=== PATIENT | female | born 1960 | race Caucasian/White ===

== ENCOUNTER 2018-08-15 10:30 | Outpatient (RCR) | payer MEDICARE, MEDICAID, SELFPAY ==
--- NOTE | 2018-08-03 12:00 | PT.OIE ---
Current Diagnoses Pain in right ankle and joints of right foot (08/03/18) Stiffness of right ankle, not elsewhere classified (08/03/18) Muscle weakness (generalized) (08/03/18) Other enthesopathy of right foot (08/03/18) Other abnormalities of gait and mobility (08/03/18) Provider Visit Care Team Role Provider Type Babak Lambert DPM Attending Provider Non-Staff Specialty: Podiatry Address: [address] [place] [address], [id number] Email: Physical Therapy Initial Evaluation PT-OP-A Visit Information Start: 08/04/18 14:03 Freq: Status: Active Protocol: Document 08/03/18 12:00 [facility] (Rec: 08/04/18 14:44 [facility] [email or web address]) Out-Patient Physical Therapy Visit Information Visit Information Visit Type Initial Evaluation Visit Start Time 12:00 Visit Stop Time 12:45 Total Visit Minutes 45 Visit Number 1 Number of 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 Current Complaints R heel and LE pain, swelling History of Current Condition Pt is a 58 y/o female presenting to physical therapy with a c/o R heel and LE pain over the past 2-3 months. Pt notes that her entire lower leg on the R was swollen and red, worsening in May of 2018. Pt was initially thought to have gout or cellulitis. MRI performed on 06/13/18 showed: tendinosis and instrsubstanec low to moderate grade partial-thickness teaer of the mid achilles tendon 4- 5 cm fron insertion, as well as edema and swelling over dorsal and medial aspect of the R ankle joint. Pt was initially placed in an PIOTR wrap for RLE with decreased swelling. Upon return to the doctor, pt was placed in a walking boot and was compliant with this from 06/28/2017 until 07/19/17. She notes that since not using the walking boot all the time, she has some increased swelling but it does go away with rest, elevation and icing. Pt is still compliant with the compression stocking. She would like to get back to walking for exercise, as she had gastric surgery 2-3 yrs ago and wants to make sure she can keep the weight she lost off. She is wearing a heel lift in R shoe as well. Prior Treatments and Tests MRI (see above) Treatment Goals Patient/Caregiver Goals get back to walking program, decrease pain Prior Functional Status Baseline Function- Recreation/Hobbies walking outdoors, hills, 3-4 miles per day Current Functional Impairments (Reported) Functional Limitations- Recreation/ no walking program due to pain Hobbies and RLE swelling Personal Factors Other Personal Factors That May Effect cardiac issues (CHF), Therapy/Recovery depression, R NELL 2 yrs ago, gastric surgery 2-3 yrs ago, SOB with exertion (along with some dizziness), h/o falls ( reports she is clumsy), OA PT-OP-C Subjective Start: 08/04/18 14:03 Freq: Status: Active Protocol: Document 08/03/18 12:00 [facility] (Rec: 08/04/18 14:44 [facility] [email or web address]) Patient Questionnaires Lower Extremity Functional Scale LEFS Score 40 OP-PT Pain Assessment Location R achilles Intensity 4 Scale Used Numeric (1 - 10) Pain Aggravating Factors Activity Exercise Standing Walking PT-OP-D Balance Start: 08/04/18 14:03 Freq: Status: Active Protocol: Document 08/03/18 12:00 [facility] (Rec: 08/04/18 14:44 [facility] [email or web address]) Balance Tests Single Limb Standing Single Limb- Right unable Single Limb- Left 5 sec with increased sway PT-OP-F Manual Assessment Start: 08/04/18 14:03 Freq: Status: Active Protocol: Document 08/03/18 12:00 [facility] (Rec: 08/04/18 14:44 [facility] [email or web address]) Manual Assessments Soft Tissue Assessment Soft Tissue Mobility Assessment Moderate tenderness to palpation: R achilles (distal and middle), no tenderness in gastroc/soleus with palpation PT-OP-G Mobility & Gait Start: 08/04/18 14:03 Freq: Status: Active Protocol: Document 08/03/18 12:00 [facility] (Rec: 08/04/18 14:44 [facility] [email or web address]) OP Gait Assessment Comments Gait Comments R hip ER throughout gait with toe-out position, decreased push off on the R, decreased step length on the L PT-OP-H Neuro Start: 08/04/18 14:03 Freq: Status: Active Protocol: Document 08/03/18 12:00 [facility] (Rec: 08/04/18 14:44 [facility] [email or web address]) Sensation Evaluation Gross Sensation Gross Sensation WNL PT-OP-K Range of Motion Start: 08/04/18 14:03 Freq: Status: Active Protocol: Document 08/03/18 12:00 [facility] (Rec: 08/04/18 14:44 [facility] [email or web address]) Ankle and Foot Goniometric Range of Motion Ankle and Foot Measured in Degrees Right Passive Dorsiflexion with Knee Extended 8 Plantarflexion 55 Inversion 25 Eversion 18 Right Active Dorsiflexion with Knee Extended 5 Plantarflexion 50 Inversion 20 Eversion 12 Left Active Dorsiflexion with Knee Extended 12 Plantarflexion 55 Inversion 30 Eversion 20 PT-OP-L Special Tests Start: 08/04/18 14:03 Freq: Status: Active Protocol: Document 08/03/18 12:00 [facility] (Rec: 08/04/18 14:44 [facility] [email or web address]) Special Tests Foot/Ankle Special Tests Castle Test Results negative R Vascular Special Tests Kirit's Sign Test Results negative R PT-OP-M Strength Start: 08/04/18 14:03 Freq: Status: Active Protocol: Document 08/03/18 12:00 [facility] (Rec: 08/04/18 14:44 [facility] [email or web address]) Hip Strength Hip Manual Muscle Testing Right Flexion (L2) 5 Normal External Rotation 5 Normal Internal Rotation 5 Normal Left Flexion (L2) 5 Normal External Rotation 5 Normal Internal Rotation 5 Normal Knee Strength Knee Manual Muscle Testing Right Flexion (S2) 5 Normal Extension (L3) 5 Normal Left Flexion (S2) 5 Normal Extension (L3) 5 Normal Ankle/Foot Strength Ankle and Foot Manual Muscle Testing Right Dorsiflexion (L4) 4+ Good+ Plantarflexion (S1) 2+ Poor+ Inversion 4 Good Eversion (S1) 4 Good Left Dorsiflexion (L4) 5 Normal Plantarflexion (S1) 4 Good Inversion 5 Normal Eversion (S1) 5 Normal PT-OP-Q Treatments Start: 08/04/18 14:03 Freq: Status: Active Protocol: Document 08/03/18 12:00 [facility] (Rec: 08/04/18 14:44 [facility] [email or web address]) Therapeutic Exercises Supine Exercises ABCs Side right Reps/Minutes 1 set Sitting Exercises ankle PF Side right Resistance L3 Reps/Minutes x10 Standing Exercises gastroc stretch Standing Exercise Name vs wall Side right Reps/Minutes 2x30 sec PT-OP-T Assessment and Plan Start: 08/04/18 14:03 Freq: Status: Active Protocol: Document 08/03/18 12:00 [facility] (Rec: 08/04/18 14:44 [facility] [email or web address]) Physical Therapy Assessment Rehab Potential Rehabilitation Potential Good Evaluation Complexity Number of Personal Factors/Comorbidities 3 or More Number of Body Systems Impaired 4 or More Clinical Presentation at Evaluation Evolving Impairments Impairments Activity Tolerance Balance Functional Activities Gait Pain ROM Soft Tissue Mobility Strength Goals Lower Extremity Functional Scale score Impairment LEFS: 40/80 or 50% Short Term Goal (STG) LEFS score to at least 60% to demonstrate improvements with functional activities including walking and standing . STG Duration 6 weeks [facility] Goal (LTG) LEFS score to at least 70% to demonstrate improvements with functional activities including walking and standing . LTG Duration 12 weeks R ankle strength Impairment R ankle weakness Short Term Goal (STG) R ankle strength with manual muscle testing: at least 4+/5 with DF, inversion, and eversion and 3+/5 with PF. STG Duration 6 weeks [facility] Goal (LTG) R ankle strength with manual muscle testin/5 with DF, inversion, and eversion and 4/ 5 with PF. LTG Duration 12 weeks R ankle ROM Impairment R ankle ROM [facility] Goal (LTG) R ankle AROM: DF to 10 degrees , PF to 55 degrees, inversion to 30 degrees, and eversion to 20 degrees to tolerate ambulation on uneven terrain and perform stairs without compensatory movements. LTG Duration 12 weeks walking Impairment unable to walk for weight management due to pain Short Term Goal (STG) pt will walk for 15 min outdoors on firm ground without increased pain, 3 days per week. STG Duration 6 weeks [facility] Goal (LTG) pt will walk for 30 min on firm ground without increased pain, 5 days per week to maintain a home walking program. LTG Duration 12 weeks Assessment Summary Assessment Pt presents with negative Castle test and the ability to PF the R ankle against light resistance without pain, but unable to perform a single leg heel raise on the affected limb. Pt appears to be compliant with wearing her compression stocking, and is no longer using the walking boot. She has a heel lift in her R shoe which appears to be appropriate for her at this time. Pt will require extensive physical therapy to safely progress her gait, standing balance, ankle ROM and strength, as well as continued skilled progression of her HEP to eventually return to a safe walking program and level of activity to assist with weight gain prevention and return to her prior level of function. Recommend pt to continue to rest, elevate and ice her R ankle as needed. Physical Therapy Plan Frequency and Duration Frequency of Treatment 2x/Week Duration of Treatment 12 weeks Plan of Care Start Date 08/03/18 Plan of Care End Date 10/26/18 Therapeutic Interventions Therapeutic Interventions Aquatic Therapy Balance Training Gait Training Home Exercise Program Joint Mobilizations Manual Therapy Neuromuscular Re-education Orthotic/Prosthetic Management Patient/Caregiver Education Self-Care/Home Management Soft Tissue Mobilization Taping Therapeutic Activities Therapeutic Exercises Modalities Cold Pack/Ice Massage Electric Stimulation Hot Packs Iontophoresis Ultrasound Other Therapeutic Interventions iontophoresis with dexamethasone 4 mg/mL Next Visit Focus/Plan Next Note Type Treatment Note Next Visit Plan cross-friction massage to achilles, modalities for pain as needed including ultrasound , iontophoresis with dexamethasone 4 mg/mL if POC returned and signed
--- NOTE | 2018-08-07 11:35 | PT.OTN ---
Current Diagnoses Pain in right ankle and joints of right foot (08/07/18) Other enthesopathy of right foot (08/07/18) Physical Therapy Treatment Note PT-OP-A Visit Information Start: 08/04/18 14:03 Freq: Status: Active Protocol: Document 08/07/18 10:30 AMB (Rec: 08/07/18 10:38 AMB [id number]) Out-Patient Physical Therapy Visit Information Visit Information Visit Type Treatment Note Visit Start Time 10:30 Visit Stop Time 11:15 Visit Number 2 PT-OP-B Current Condition Start: 08/04/18 14:03 Freq: Status: Active Protocol: Document 08/03/18 12:00 [facility] (Rec: 08/04/18 14:44 [facility] [email or web address]) Current Condition History of Current Condition Onset Date 3 mos. Current Complaints R heel and LE pain, swelling History of Current Condition Pt is a 58 y/o female presenting to physical therapy with a c/o R heel and LE pain over the past 2-3 months. Pt notes that her entire lower leg on the R was swollen and red, worsening in May of 2018. Pt was initially thought to have gout or cellulitis. MRI performed on 06/13/18 showed: tendinosis and instrsubstanec low to moderate grade partial-thickness teaer of the mid achilles tendon 4- 5 cm fron insertion, as well as edema and swelling over dorsal and medial aspect of the R ankle joint. Pt was initially placed in an PIOTR wrap for RLE with decreased swelling. Upon return to the doctor, pt was placed in a walking boot and was compliant with this from 06/28/2017 until 07/19/17. She notes that since not using the walking boot all the time, she has some increased swelling but it does go away with rest, elevation and icing. Pt is still compliant with the compression stocking. She would like to get back to walking for exercise, as she had gastric surgery 2-3 yrs ago and wants to make sure she can keep the weight she lost off. She is wearing a heel lift in R shoe as well. Prior Treatments and Tests MRI (see above) Treatment Goals Patient/Caregiver Goals get back to walking program, decrease pain Prior Functional Status Baseline Function- Recreation/Hobbies walking outdoors, hills, 3-4 miles per day Current Functional Impairments (Reported) Functional Limitations- Recreation/ no walking program due to pain Hobbies and RLE swelling Personal Factors Other Personal Factors That May Effect cardiac issues (CHF), Therapy/Recovery depression, R NELL 2 yrs ago, gastric surgery 2-3 yrs ago, SOB with exertion (along with some dizziness), h/o falls ( reports she is clumsy), OA PT-OP-C Subjective Start: 08/04/18 14:03 Freq: Status: Active Protocol: Document 08/07/18 10:30 AMB (Rec: 08/07/18 10:38 AMB [id number]) OP-PT Subjective Patient Comments Patient Comments Pt notes no pain with HEP. Feels ankle is somewhat numb, so she watches the swelling more than the pain. PT-OP-D Balance Start: 08/04/18 14:03 Freq: Status: Active Protocol: Document 08/03/18 12:00 [facility] (Rec: 08/04/18 14:44 [facility] [email or web address]) Balance Tests Single Limb Standing Single Limb- Right unable Single Limb- Left 5 sec with increased sway PT-OP-F Manual Assessment Start: 08/04/18 14:03 Freq: Status: Active Protocol: Document 08/03/18 12:00 [facility] (Rec: 08/04/18 14:44 [facility] [email or web address]) Manual Assessments Soft Tissue Assessment Soft Tissue Mobility Assessment Moderate tenderness to palpation: R achilles (distal and middle), no tenderness in gastroc/soleus with palpation PT-OP-G Mobility & Gait Start: 08/04/18 14:03 Freq: Status: Active Protocol: Document 08/03/18 12:00 [facility] (Rec: 08/04/18 14:44 [facility] [email or web address]) OP Gait Assessment Comments Gait Comments R hip ER throughout gait with toe-out position, decreased push off on the R, decreased step length on the L PT-OP-H Neuro Start: 08/04/18 14:03 Freq: Status: Active Protocol: Document 08/03/18 12:00 [facility] (Rec: 08/04/18 14:44 [facility] [email or web address]) Sensation Evaluation Gross Sensation Gross Sensation WNL PT-OP-K Range of Motion Start: 08/04/18 14:03 Freq: Status: Active Protocol: Document 08/03/18 12:00 [facility] (Rec: 08/04/18 14:44 [facility] [email or web address]) Ankle and Foot Goniometric Range of Motion Ankle and Foot Measured in Degrees Right Passive Dorsiflexion with Knee Extended 8 Plantarflexion 55 Inversion 25 Eversion 18 Right Active Dorsiflexion with Knee Extended 5 Plantarflexion 50 Inversion 20 Eversion 12 Left Active Dorsiflexion with Knee Extended 12 Plantarflexion 55 Inversion 30 Eversion 20 PT-OP-L Special Tests Start: 08/04/18 14:03 Freq: Status: Active Protocol: Document 08/03/18 12:00 [facility] (Rec: 08/04/18 14:44 [facility] [email or web address]) Special Tests Foot/Ankle Special Tests Castle Test Results negative R Vascular Special Tests Kirit's Sign Test Results negative R PT-OP-M Strength Start: 08/04/18 14:03 Freq: Status: Active Protocol: Document 08/03/18 12:00 [facility] (Rec: 08/04/18 14:44 [facility] [email or web address]) Hip Strength Hip Manual Muscle Testing Right Flexion (L2) 5 Normal External Rotation 5 Normal Internal Rotation 5 Normal Left Flexion (L2) 5 Normal External Rotation 5 Normal Internal Rotation 5 Normal Knee Strength Knee Manual Muscle Testing Right Flexion (S2) 5 Normal Extension (L3) 5 Normal Left Flexion (S2) 5 Normal Extension (L3) 5 Normal Ankle/Foot Strength Ankle and Foot Manual Muscle Testing Right Dorsiflexion (L4) 4+ Good+ Plantarflexion (S1) 2+ Poor+ Inversion 4 Good Eversion (S1) 4 Good Left Dorsiflexion (L4) 5 Normal Plantarflexion (S1) 4 Good Inversion 5 Normal Eversion (S1) 5 Normal PT-OP-Q Treatments Start: 08/04/18 14:03 Freq: Status: Active Protocol: Document 08/07/18 11:15 AMB (Rec: 08/07/18 11:35 AMB [id number]) Cardio Equipment Recumbent Elliptical ([employer]) Duration (Minutes) 8 Resistance 4 Therapeutic Exercises Sitting Exercises 1 Sitting Exercise Name 4 way ankle Side right Resistance L3 Reps/Minutes 2x5 Standing Exercises gastroc stretch Standing Exercise Name on TRE Side right Reps/Minutes 2x30 sec Manual Therapy Treatment Soft Tissue Mobilization 1 Body Location R ankle Comments cross friction at achilles, MFR into calf PT-OP-R Modalities Start: 08/04/18 14:03 Freq: Status: Active Protocol: Document 08/07/18 11:15 AMB (Rec: 08/07/18 11:35 [facility] [id number]) Hot Pack/Cold Pack Treatment Ice Massage Location R achilles Treatment Duration (minutes) 4 Ultrasound Therapy Treatment Right Ankle Treatment Duration (minutes) 7 Patient Position Hooklying Frequency Setting (mHz) 1 Duty Cycle 50% Intensity Setting (w/cm2) 1.2 PT-OP-T Assessment and Plan Start: 08/04/18 14:03 Freq: Status: Active Protocol: Document 08/07/18 11:15 [facility] (Rec: 08/07/18 11:35 [facility] [id number]) Physical Therapy Assessment Assessment Summary Assessment Pt is excited to start moving more, but encouraged pt to continue to be careful given the recurrent nature of her injury. Pt notes she slid down her driveway walking to her car so her ankle is a bit more swollen than usual. Physical Therapy Plan Next Visit Focus/Plan Next Note Type Treatment Note Next Visit Plan iontophoresis with dexamethasone 4 mg/mL if POC returned and signed continue cross friction and modalities for swelling/pain control, progress exercise and cross friction m
--- NOTE | 2018-08-15 13:12 | PT.OTN ---
Current Diagnoses Pain in right ankle and joints of right foot (08/15/18) Other enthesopathy of right foot (08/15/18) Physical Therapy Treatment Note PT-OP-A Visit Information Start: 08/04/18 14:03 Freq: Status: Active Protocol: Document 08/15/18 10:40 HH (Rec: 08/15/18 13:12 HH [email or web address]) Out-Patient Physical Therapy Visit Information Visit Information Visit Type Treatment Note Visit Note Pt will follow up with doctor on . 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 Current Complaints R heel and LE pain, swelling History of Current Condition Pt is a 58 y/o female presenting to physical therapy with a c/o R heel and LE pain over the past 2-3 months. Pt notes that her entire lower leg on the R was swollen and red, worsening in May of 2018. Pt was initially thought to have gout or cellulitis. MRI performed on 06/13/18 showed: tendinosis and instrsubstanec low to moderate grade partial-thickness teaer of the mid achilles tendon 4- 5 cm fron insertion, as well as edema and swelling over dorsal and medial aspect of the R ankle joint. Pt was initially placed in an PIOTR wrap for RLE with decreased swelling. Upon return to the doctor, pt was placed in a walking boot and was compliant with this from 06/28/2017 until 07/19/17. She notes that since not using the walking boot all the time, she has some increased swelling but it does go away with rest, elevation and icing. Pt is still compliant with the compression stocking. She would like to get back to walking for exercise, as she had gastric surgery 2-3 yrs ago and wants to make sure she can keep the weight she lost off. She is wearing a heel lift in R shoe as well. Prior Treatments and Tests MRI (see above) Treatment Goals Patient/Caregiver Goals get back to walking program, decrease pain Prior Functional Status Baseline Function- Recreation/Hobbies walking outdoors, hills, 3-4 miles per day Current Functional Impairments (Reported) Functional Limitations- Recreation/ no walking program due to pain Hobbies and RLE swelling Personal Factors Other Personal Factors That May Effect cardiac issues (CHF), Therapy/Recovery depression, R NELL 2 yrs ago, gastric surgery 2-3 yrs ago, SOB with exertion (along with some dizziness), h/o falls ( reports she is clumsy), OA PT-OP-C Subjective Start: 08/04/18 14:03 Freq: Status: Active Protocol: Document 08/15/18 10:40 HH (Rec: 08/15/18 13:12 HH [email or web address]) OP-PT Subjective Patient Comments Patient Comments I feel a lot better lately and i've been walking more too . I walked 1.5 mile 2 days ago so my foot is quite sore today. Patient Reported Progress Improving PT-OP-D Balance Start: 08/04/18 14:03 Freq: Status: Active Protocol: Document 08/03/18 12:00 RCC (Rec: 08/04/18 14:44 RCC [email or web address]) Balance Tests Single Limb Standing Single Limb- Right unable Single Limb- Left 5 sec with increased sway PT-OP-F Manual Assessment Start: 08/04/18 14:03 Freq: Status: Active Protocol: Document 08/03/18 12:00 RCC (Rec: 08/04/18 14:44 RCC [email or web address]) Manual Assessments Soft Tissue Assessment Soft Tissue Mobility Assessment Moderate tenderness to palpation: R achilles (distal and middle), no tenderness in gastroc/soleus with palpation PT-OP-G Mobility & Gait Start: 08/04/18 14:03 Freq: Status: Active Protocol: Document 08/03/18 12:00 RCC (Rec: 08/04/18 14:44 RCC [email or web address]) OP Gait Assessment Comments Gait Comments R hip ER throughout gait with toe-out position, decreased push off on the R, decreased step length on the L PT-OP-H Neuro Start: 08/04/18 14:03 Freq: Status: Active Protocol: Document 08/03/18 12:00 RCC (Rec: 08/04/18 14:44 RCC [email or web address]) Sensation Evaluation Gross Sensation Gross Sensation WNL PT-OP-K Range of Motion Start: 08/04/18 14:03 Freq: Status: Active Protocol: Document 08/03/18 12:00 RCC (Rec: 08/04/18 14:44 RCC [email or web address]) Ankle and Foot Goniometric Range of Motion Ankle and Foot Measured in Degrees Right Passive Dorsiflexion with Knee Extended 8 Plantarflexion 55 Inversion 25 Eversion 18 Right Active Dorsiflexion with Knee Extended 5 Plantarflexion 50 Inversion 20 Eversion 12 Left Active Dorsiflexion with Knee Extended 12 Plantarflexion 55 Inversion 30 Eversion 20 PT-OP-L Special Tests Start: 08/04/18 14:03 Freq: Status: Active Protocol: Document 08/03/18 12:00 RCC (Rec: 08/04/18 14:44 RCC [email or web address]) Special Tests Foot/Ankle Special Tests Castle Test Results negative R Vascular Special Tests Kirit's Sign Test Results negative R PT-OP-M Strength Start: 08/04/18 14:03 Freq: Status: Active Protocol: Document 08/03/18 12:00 RCC (Rec: 08/04/18 14:44 RCC [email or web address]) Hip Strength Hip Manual Muscle Testing Right Flexion (L2) 5 Normal External Rotation 5 Normal Internal Rotation 5 Normal Left Flexion (L2) 5 Normal External Rotation 5 Normal Internal Rotation 5 Normal Knee Strength Knee Manual Muscle Testing Right Flexion (S2) 5 Normal Extension (L3) 5 Normal Left Flexion (S2) 5 Normal Extension (L3) 5 Normal Ankle/Foot Strength Ankle and Foot Manual Muscle Testing Right Dorsiflexion (L4) 4+ Good+ Plantarflexion (S1) 2+ Poor+ Inversion 4 Good Eversion (S1) 4 Good Left Dorsiflexion (L4) 5 Normal Plantarflexion (S1) 4 Good Inversion 5 Normal Eversion (S1) 5 Normal PT-OP-Q Treatments Start: 08/04/18 14:03 Freq: Status: Active Protocol: Document 08/15/18 10:40 HH (Rec: 08/15/18 13:12 HH [email or web address]) Therapeutic Exercises Supine Exercises Iso DF, PF, INV, EV Side right Reps/Minutes 10 mins Comments against manual resistance Standing Exercises gastroc stretch Standing Exercise Name on TRE Side right Reps/Minutes 2x30 sec Gait Training Gait Activity swing phase at RLE Surface yoga benton Comments stance phase on L LE and heel strike at R LE stance phase at R LE Surface yoga benton Comments heel strike to before heel off Manual Therapy Treatment Soft Tissue Mobilization 1 Body Location R ankle Comments cross friction at achilles, R ant tib, post tib MFR into calf PT-OP-R Modalities Start: 08/04/18 14:03 Freq: Status: Active Protocol: Document 08/07/18 11:15 AMB (Rec: 08/07/18 11:35 AMB [id number]) Hot Pack/Cold Pack Treatment Ice Massage Location R achilles Treatment Duration (minutes) 4 Ultrasound Therapy Treatment Right Ankle Treatment Duration (minutes) 7 Patient Position Hooklying Frequency Setting (mHz) 1 Duty Cycle 50% Intensity Setting (w/cm2) 1.2 PT-OP-T Assessment and Plan Start: 08/04/18 14:03 Freq: Status: Active Protocol: Document 08/15/18 10:40 HH (Rec: 08/15/18 13:12 HH [email or web address]) Physical Therapy Assessment Assessment Summary Assessment Pt cont to walk more as tolerated but encouraged pt to be cautious and careful regarding her activity level and tolerance. tx focused on ant tib and post tib manual therapy, ankle isometric strengthening, and gait training including slow movement to facilitate WB and single leg balance on R LE. pt tends to present L hip drop during RLE stance phase. Physical Therapy Plan Next Visit Focus/Plan Next Note Type Treatment Note Next Visit Plan iontophoresis with dexamethasone 4 mg/mL if POC returned and signed continue cross friction and modalities for swelling/pain control, progress exercise and cross friction m gait training on heel strike and heel off isometric strengthening and con strengtehning as brett
--- NOTE | 2018-08-17 12:49 | PT.OPDS ---
Current Diagnoses Pain in right ankle and joints of right foot (08/15/18) Other enthesopathy of right foot (08/15/18) Provider Visit Care Team Role Provider Type Babak Lambert DPM Attending Provider Non-Staff Specialty: Podiatry Address: [place], [address] Email: Visit Number Visit Number 3 Discharge Summary PT-OP-B Current Condition Start: 08/04/18 14:03 Freq: Status: Active Protocol: Document 08/03/18 12:00 RCC (Rec: 08/04/18 14:44 RCC [email or web address]) Current Condition History of Current Condition Onset Date 3 mos. Current Complaints R heel and LE pain, swelling History of Current Condition Pt is a 58 y/o female presenting to physical therapy with a c/o R heel and LE pain over the past 2-3 months. Pt notes that her entire lower leg on the R was swollen and red, worsening in May of 2018. Pt was initially thought to have gout or cellulitis. MRI performed on 06/13/18 showed: tendinosis and instrsubstanec low to moderate grade partial-thickness teaer of the mid achilles tendon 4- 5 cm fron insertion, as well as edema and swelling over dorsal and medial aspect of the R ankle joint. Pt was initially placed in an PIOTR wrap for RLE with decreased swelling. Upon return to the doctor, pt was placed in a walking boot and was compliant with this from 06/28/2017 until 07/19/17. She notes that since not using the walking boot all the time, she has some increased swelling but it does go away with rest, elevation and icing. Pt is still compliant with the compression stocking. She would like to get back to walking for exercise, as she had gastric surgery 2-3 yrs ago and wants to make sure she can keep the weight she lost off. She is wearing a heel lift in R shoe as well. Prior Treatments and Tests MRI (see above) Treatment Goals Patient/Caregiver Goals get back to walking program, decrease pain Prior Functional Status Baseline Function- Recreation/Hobbies walking outdoors, hills, 3-4 miles per day Current Functional Impairments (Reported) Functional Limitations- Recreation/ no walking program due to pain Hobbies and RLE swelling Personal Factors Other Personal Factors That May Effect cardiac issues (CHF), Therapy/Recovery depression, R NELL 2 yrs ago, gastric surgery 2-3 yrs ago, SOB with exertion (along with some dizziness), h/o falls ( reports she is clumsy), OA PT-OP-C Subjective Start: 08/04/18 14:03 Freq: Status: Active Protocol: Document 08/17/18 12:46 RCC (Rec: 08/17/18 12:49 RCC [email or web address]) OP-PT Subjective Patient Comments Patient Comments Pt called into the clinic to cancel all further appointments at this time per MD recommendation. Patient Reported Progress Improving PT-OP-D Balance Start: 08/04/18 14:03 Freq: Status: Active Protocol: Document 08/03/18 12:00 RCC (Rec: 08/04/18 14:44 RCC [email or web address]) Balance Tests Single Limb Standing Single Limb- Right unable Single Limb- Left 5 sec with increased sway PT-OP-F Manual Assessment Start: 08/04/18 14:03 Freq: Status: Active Protocol: Document 08/03/18 12:00 RCC (Rec: 08/04/18 14:44 RCC [email or web address]) Manual Assessments Soft Tissue Assessment Soft Tissue Mobility Assessment Moderate tenderness to palpation: R achilles (distal and middle), no tenderness in gastroc/soleus with palpation PT-OP-G Mobility & Gait Start: 08/04/18 14:03 Freq: Status: Active Protocol: Document 08/03/18 12:00 RCC (Rec: 08/04/18 14:44 RCC [email or web address]) OP Gait Assessment Comments Gait Comments R hip ER throughout gait with toe-out position, decreased push off on the R, decreased step length on the L PT-OP-H Neuro Start: 08/04/18 14:03 Freq: Status: Active Protocol: Document 08/03/18 12:00 RCC (Rec: 08/04/18 14:44 RCC [email or web address]) Sensation Evaluation Gross Sensation Gross Sensation WNL PT-OP-K Range of Motion Start: 08/04/18 14:03 Freq: Status: Active Protocol: Document 08/03/18 12:00 RCC (Rec: 08/04/18 14:44 RCC [email or web address]) Ankle and Foot Goniometric Range of Motion Ankle and Foot Measured in Degrees Right Passive Dorsiflexion with Knee Extended 8 Plantarflexion 55 Inversion 25 Eversion 18 Right Active Dorsiflexion with Knee Extended 5 Plantarflexion 50 Inversion 20 Eversion 12 Left Active Dorsiflexion with Knee Extended 12 Plantarflexion 55 Inversion 30 Eversion 20 PT-OP-L Special Tests Start: 08/04/18 14:03 Freq: Status: Active Protocol: Document 08/03/18 12:00 RCC (Rec: 08/04/18 14:44 RCC [email or web address]) Special Tests Foot/Ankle Special Tests Castle Test Results negative R Vascular Special Tests Kirit's Sign Test Results negative R PT-OP-M Strength Start: 08/04/18 14:03 Freq: Status: Active Protocol: Document 08/03/18 12:00 RCC (Rec: 08/04/18 14:44 RCC [email or web address]) Hip Strength Hip Manual Muscle Testing Right Flexion (L2) 5 Normal External Rotation 5 Normal Internal Rotation 5 Normal Left Flexion (L2) 5 Normal External Rotation 5 Normal Internal Rotation 5 Normal Knee Strength Knee Manual Muscle Testing Right Flexion (S2) 5 Normal Extension (L3) 5 Normal Left Flexion (S2) 5 Normal Extension (L3) 5 Normal Ankle/Foot Strength Ankle and Foot Manual Muscle Testing Right Dorsiflexion (L4) 4+ Good+ Plantarflexion (S1) 2+ Poor+ Inversion 4 Good Eversion (S1) 4 Good Left Dorsiflexion (L4) 5 Normal Plantarflexion (S1) 4 Good Inversion 5 Normal Eversion (S1) 5 Normal PT-OP-T Assessment and Plan Start: 08/04/18 14:03 Freq: Status: Active Protocol: Document 08/17/18 12:46 RCC (Rec: 08/17/18 12:49 [facility] [email or web address]) Physical Therapy Assessment Assessment Summary Assessment Pt called into the clinic today, requesting d/c per MD recommendation. She noted that she likely would be attempting other treatment at this time, but potentially coming back to physical therapy if needed at a later date. She reports she will be using her night splint and bracing her R ankle with walking. Pt will be d/c at this time per MD recommendation. Objective measures were unable to be update since initial evaluation due to pt not coming back to physical therapy and canceling all appointments beyond her 3rd physical therapy visit. Physical Therapy Plan Discharge Physical Therapy Discharge Reasons Patient Request Discharge Comments MD recommendation per pt.
== END 2018-08-17 13:43 ==
LOC: PHYS 10:30
PROVIDERS: Visit Provider Podiatrist
DX: M25.571 Pain in right ankle and joints of right foot (principal); M77.51 Other enthesopathy of right foot and ankle
CPT/HCPCS: 97035; 97110; 97112; 97116; 97140; 97162

== ENCOUNTER → 2019-10-25 14:56 | Outpatient (CLI) | payer MEDICARE, MEDICAID, SELFPAY ==
[2019-10-27 16:10] LABS: COVID19 Sendout Not Detected (Not Detected)
== END ==
PROVIDERS: Visit Provider Physician Assistant
DX: Z03.818 Encounter for observation for suspected exposure to other biological agents ruled out (principal)
CPT/HCPCS: 87635